=== PATIENT | male | born 1965 | race Caucasian/White ===

== ENCOUNTER 2016-07-07 19:14 | Emergency (ER) | payer MEDICAID ==
[2016-07-07 21:00] VITALS: BP 136/79; PULSE 92; TEMP 98; BMI 29.6
--- NOTE | 2016-07-07 21:41 | EDPRACDOC ---
- General Information Chief Complaint: Back Pain Stated Complaint: FELL LAST PM RT SIDED BACK PAIN Time Seen by Provider: 07/07/16 21:33 Information Source: Patient Mode Of Arrival: Car Home Medications: Home Medications Diazepam [Valium] 5 mg PO TID PRN #15 tablet 07/07/16 Prednisone [Deltasone, Orasone] 20 mg PO DAILY #20 tab 07/07/16 Allergies/Adverse Reactions: Allergies Allergy/AdvReac Type Severity Reaction Status Date / Time aspirin Allergy Bleeding Verified 04/26/16 06:20 codeine Allergy Nausea only Verified 04/26/16 06:20 - History of Present Illness Onset: last night HPI: Pt c/o lower back pain after falling into [place] yesterday. Denies loss of control bowel or bladder, n/v, leg numbness. C/o lower abd tenderness. Hx back surgery Pain Location: Reports: Lumbar Pain Radiates To: Reports: None Pain Caused By: Reports: Spontaneous Circumstances: Reports: Fall Relevant History: Reports: Chronic back pain Pain Severity: Reports: Severe Pain Quality: Reports: Aching, Sharp Worsened By: Reports: Breathing, Movement, Twisting, Walking Associated Signs and Symptoms: Reports: Abdominal Pain ED Past Medical History - History Reviewed Yes Nurses notes reviewed and agree except as marked - Patient Medical History Cardiac History: Reports: Hypertension Psychological History: Denies: Depression - Social Medical History Smoking Status: Heavy tobacco smoker (5 or more cigarettes/day or daily pipe/ cigar) ETOH: None Substance Abuse: None EDM Review of Systems - Review of Systems Constitutional: No Symptoms Reported. negative: Fever, Chills, Weakness, Fatigue, Loss of Appetite Respiratory: No Symptoms Reported. negative: Cough, Brassy Cough, Barky Cough, Shortness of Breath, Wheezing, Hemoptysis Cardiovascular: No Symptoms Reported. negative: Chest Pain, Palpitations, Syncope, Edema, Orthopnea, PND, Skin Mottling, Cyanosis Gastrointestinal: Pain Genitourinary: No Symptoms Reported. negative: Dysuria, Hematuria, Frequency, Discharge, Bleeding, Testicular Pain, Neurological: No Symptoms Reported Musculoskeletal: Back Integumentary: No Symptoms Reported. negative: Itching, Rash, Bruising, Wound Allergic/Immunologic: No Symptoms Reported. negative: Hives, Itching Hematologic: No Symptoms Reported. negative: Lymphadenopathy, Easy Bruising, Easy Bleeding Psychiatric: No Symptoms Reported. negative: Anxiety, Depression, Hallucinations, Insomnia, Suicidal - Physical Exam Constitutional: Alert (Awake) Oriented to: Time, Person, Place Last recorded Vital Signs: Last Vital Signs Temp 98.0 F 07/07/16 20:59 Pulse 92 07/07/16 20:59 Resp 20 07/07/16 20:59 BP 136/79 07/07/16 20:59 Pulse Ox 99 07/07/16 20:59 Oxygen Pulse Oxygen Saturation 99 O2 Device Room Air Oxygen Flow Rate Fraction of Inspired Oxygen ( FIO2) - HEENT Head: Normal ( normocephalic) Eye Exam: Normal (PERRL, EOMI, Sclera white) Neck: Normal (FROM, trachea at midline) - Respiratory/Cardiovascular Respiratory: Normal - CTA (BBS clear to auscultation without adventitious sounds ) Cardiovascular: Normal (RRR without murmur, gallop or rub) - GI Auscultation: Normal (NABS) Palpation: Normal (Soft,No rebound or guarding, non distended) Tenderness: Non tender Arndt's Sign: Negative - Musculoskeletal Back: Lumbar TTP Extremities: Normal (Normal tone, Pulses 2+ No cyanosis or edema, FROM) - Integumentary Skin: Normal, Warm, Dry Lymphatics: Normal (no adenopathy) - Neurologic Memory Impaired: Normal Motor Function: Normal (Normal tone, Pulses 2+ No cyanosis or edema, FROM) Mood Description: Normal Perception: Normal ED Back Exam - Neurologic Motor Deficit: None (strength 5/5, sensation nl) Reflexes: Normal (CN II-X11 intact) - Musculoskeletal Cervical: Normal Thoracic: Normal Lumbar: Tender Midline: Tender Paraspinous: Tender Straight Leg Raise: Negative Pelvis: Normal - Differential Diagnosis DJD, Fracture, HNP, Musculoskeletal pain, Strain - Diagnostic Imaging L-Spine Image interpreted by: Radiologist IMPRESSION: 1. No acute traumatic injury within the lumbar spine. 2. Stable postoperative changes at L4-5 without hardware complication. 3. 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 4. Calcification overlying the right renal shadow, which may reflect right renal nephrolithiasis. - Additional Information Pt is in pain clinic and take oxycodone 30mg Decision Time to Discharge: 22:06 - Departure Disposition: Home Condition: Good Final Diagnosis: Lumbar sprain Instructions: Thoracic (Lumbar) Strain Education/Counseling Given To: Patient Education/Counseling Given Regarding: Diagnosis, Treatment, Follow Up Referrals: David Snyder PA [Primary Care Provider] - One Week Prescriptions: New Diazepam [Valium] 5 mg PO TID PRN #15 tablet PRN Reason: Muscle Spasms Prednisone [Deltasone, Orasone] 20 mg PO DAILY #20 tab Additional Instructions: Return to the Emergency Department immediately for any numbness in your perineal area or genitalia, any bowel or bladder incontinence or retention (not related to constipation).
--- NOTE | 2016-07-07 22:05 | DIRPT ---
CLINICAL DATA: Initial evaluation for acute pain status post fall. EXAM: LUMBAR SPINE - COMPLETE 4+ VIEW COMPARISON: Prior study from 02/01/2016. FINDINGS: Five non rib-bearing lumbar type vertebral bodies present. Postoperative changes again seen at L4-5 with left transpedicular screw and interlocking maria a fixation. Interbody spacer in place at L4-5. No periprosthetic lucency about the hardware to suggest loosening or infection. Hardware intact. Alignment is stable with preservation of the normal lumbar lordosis. Vertebral body heights maintained. No acute fracture or listhesis. Multilevel degenerative spondylolysis with endplate sclerosis and osteophytosis again seen, most prominent at L3-4 and L5-S1. Degenerative intervertebral disc space narrowing with endplate changes present at T11-12 as well, stable. Visualized sacrum intact. No paraspinous soft tissue abnormality. Calcification overlying the region of the right kidney may reflect a small renal stone. IMPRESSION: 1. No acute traumatic injury within the lumbar spine. 2. Stable postoperative changes at L4-5 without hardware complication. 3. 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 4. Calcification overlying the right renal shadow, which may reflect right renal nephrolithiasis. Electronically Signed By: Alcides Llamas M.D. On: 07/07/2016 22:02
== END 2016-07-07 22:18 | disposition home or self-care (01) ==
LOC: EDMC 19:14
DX: S33.5XXA Sprain of ligaments of lumbar spine, initial encounter (principal); W19.XXXA Unspecified fall, initial encounter; Y93.9 Activity, unspecified
CPT/HCPCS: 72110; 99282